=== PATIENT | male | born 1965 | race Caucasian/White ===

== ENCOUNTER 2017-06-21 10:25 | Day surgery (SDC) | payer OTHER ==
[~2017-06-21] VITALS: Ht 190.5 cm; Wt 138.4 kg
[2017-06-21] MEDS ORDERED: NAPROXEN (11:00)
[2017-06-21 11:01] VITALS: Ht 190.5 cm; Wt 138.4 kg
[2017-06-21 11:23] VITALS: BP 120/77; PULSE 74; RESP 18
--- NOTE | 2017-06-21 11:48 | OPPN ---
Date/Time of Note Date/Time of Note DATE: 06/21/17 TIME: 11:47 Operative Report Preoperative Diagnosis Positive occult blood in stool Postoperative Diagnosis Diverticulosis of the colon Internal hemorrhoids Operation/Procedure Performed Colonoscopy Provider: DAVID PRYOR MD Anesthesia Type: MAC Estimated blood loss: none Transfusion Required: no Specimen: none Grafts/Implants: none Complications: no DAVID PRYOR MD Jun 21, 2017 11:48
[2017-06-21] MEDS ORDERED: PROPOFOL 40 ML ONE (11:50)
--- NOTE | 2017-06-21 12:45 | GILP ---
DATE OF PROCEDURE: 06/21/2017 PROCEDURE PERFORMED: Colonoscopy. PREOPERATIVE DIAGNOSIS: Positive occult blood in stool. POSTOP DIAGNOSES: 1. Colonoscopy all the way to the cecum. 2. Diverticulosis of the colon. 3. Internal hemorrhoids. 4. No colon neoplasm was identified. INDICATION: Mr. Phill Méndez is a 51-year-old male patient who was noted to have positive occult blood in stool. The patient was scheduled for colonoscopy for further evaluation. The procedure and possible complications were well explained to the patient. He understood and consented to the procedure. DESCRIPTION OF PROCEDURE: Under influence of anesthesia, the colonoscope was carefully introduced in the rectum. Under direct vision, it was advanced all the way to the cecum. Findings, the patient had diverticulosis of the colon. He also had internal hemorrhoids. No colon neoplasm was identified. He tolerated the procedure very well. There was no complication from the procedure. At the end of procedure, he was awake with stable vital signs. He was discharged home in the care of his family. IMPRESSION: Please see postop diagnoses. PLAN: 1. Screening colonoscopy in 10 years. 2. Patient was advised high-fiber diet. Dictated By: MD KARTHIK Vega/felisa/marimar /Document#: [id number]
== END 2017-06-21 14:41 | disposition home or self-care (01) ==
LOC: GIL 10:25
PROVIDERS: ATTEND Internal Medicine Gastroenterology
DX: K92.1 Melena (principal); K57.90 Diverticulosis of intestine, part unspecified, without perforation or abscess without bleeding; K64.8 Other hemorrhoids; E66.9 Obesity, unspecified; Z68.38 Body mass index [BMI] 38.0-38.9, adult
CPT/HCPCS: 45378; Z7610